=== PATIENT | male | born 1975 | race Caucasian/White ===

== ENCOUNTER 2017-11-05 12:15 | Emergency (ER) | payer BC ==
[~2017-11-05] VITALS: Ht 162.6 cm; Wt 103.2 kg
[~2017-11-05 12:15] MED LIST: ALBU6.7H INH; BENZ100 PO; PRED20 PO; TUSSSUS PO; ZITH250T PO
[2017-11-05 12:21] VITALS: BP 173/108; PULSE 93; RESP 20; TEMP 98.3; O2SAT 95
[2017-11-05] MEDS ORDERED: SODIUM CHLOR 0.9% 1000 ML INJ 1,000 ML IV SCH (12:59)
[2017-11-05] MEDS ORDERED: ONDANSETRON HCL 4 MG/2 ML VIAL IVP ONE (13:00)
[2017-11-05] MEDS ORDERED: KETOROLAC TROMETHAMINE 30 MG/ML (IVP) VIAL IV PUSH ONE (13:00)
[2017-11-05] MEDS ORDERED: SODIUM CHLORIDE 0.9% FLUSH 10 ML FLUSH IV FLUSH PRN (13:00)
--- NOTE | 2017-11-05 13:07 | PD ---
HPI Chief Complaint: Complaint Time Seen by Provider: 12:41 Travel History International Travel<30 days: No Contact w/Intl Traveler<30days: No Traveled to known affect area: No History of Present Illness HPI Patient is a 42-year-old male presents the emergency room with complaints of left-sided flank pain radiating to his groin. Patient reports that he had began feeling uncomfortable yesterday, reports that his symptoms are worse today. Patient denies any nausea vomiting with symptoms, denies any constipation or diarrhea. Patient denies any hematuria, denies history of kidney stones in the past. Patient does report some dysuria without urinary urgency or frequency. Patient denies any history of abdominal surgeries in the past. PFSH Past Medical History Medical History: Denies Significant Hx Autoimmune Disease: No Blood Disorders: No Cancer: No Diminished Hearing: No Glaucoma: No Psychiatric: No Past Surgical History AICD: No Genitourinary Surgery: No Pacemaker: No Social History Alcohol Use: Yes Tobacco Use: No Substance Use: No Allergies-Medications (Allergen,Severity, Reaction): Coded Allergies: No Known Allergies (Verified Adverse Reaction, Unknown, 11/05/17) Reported Meds & Prescriptions Reported Meds & Active Scripts Active Deltasone (Prednisone) 20 Mg Tab 20 Mg PO DIRECTED 3 TABS DAILY FOR 3 DAYS,THEN 2 TABS DAILY FOR 3 DAYS, THEN 1 TAB DAILY FOR 3 DAYS. Proventil Hfa (Albuterol Sulfate) 6.7 Gm Aero 2 Puff INH Q4HPRN * SHAKE WELL BEFORE USE * Tussionex (Chlorphenir/Hydrocodone Polistirex) Liqcr 5 Ml PO BIDPRN Reported Tessalon Perles (Benzonatate) 100 Mg Cap 100 Mg PO TID Zithromax Z-Henrique (Azithromycin) 250 Mg Tab 250 Mg PO DIRECTED 5 Days 500 MG (2 TABLETS) PO ON DAY 1, THEN 250 MG (1 TABLET) PO ON DAYS 2 TO 5. Review of Systems General / Constitutional: No: Fever Eyes: No: Visual changes HENT: No: Headaches Cardiovascular: No: Chest Pain or Discomfort Respiratory: No: Shortness of Breath Gastrointestinal: Positive: Abdominal Pain Genitourinary: Positive: Dysuria, Flank Pain, No: Urgency, Frequency, Hematuria Musculoskeletal: No: Pain Skin: No Rash Neurologic: No: Weakness Psychiatric: No: Depression Endocrine: No: Polydipsia Hematologic/Lymphatic: No: Easy Bruising Physical Exam Narrative GENERAL: mild distress SKIN: Focused skin assessment warm/dry. HEAD: Atraumatic. Normocephalic. EYES: Pupils equal and round. No scleral icterus. No injection or drainage. ENT: No nasal bleeding or discharge. Mucous membranes pink and moist. NECK: Trachea midline. No JVD. CARDIOVASCULAR: Regular rate and rhythm. No murmur appreciated. RESPIRATORY: No accessory muscle use. Clear to auscultation. Breath sounds equal bilaterally. GASTROINTESTINAL: Abdomen soft, non-tender, nondistended. Hepatic and splenic margins not palpable. Left sided flank pain MUSCULOSKELETAL: No obvious deformities. No clubbing. No cyanosis. No edema. NEUROLOGICAL: Awake and alert. No obvious cranial nerve deficits. Motor grossly within normal limits. Normal speech. PSYCHIATRIC: Appropriate mood and affect; insight and judgment normal. Data Data Last Documented VS Vital Signs Date Time Temp Pulse Resp B/P (MAP) Pulse Ox O2 Delivery O2 Flow Rate FiO2 11/05/17 12:21 98.3 93 20 173/108 (129) 95 Orders Orders Urinalysis - C+S If Indicated (11/05/17 12:23) Complete Blood Count With Diff (11/05/17 12:59) Comprehensive Metabolic Panel (11/05/17 12:59) Lipase (11/05/17 12:59) Prothrombin Time / Inr (Pt) (11/05/17 12:59) Act Partial Throm Time (Ptt) (11/05/17 12:59) Ct Abd/Pel W/O Iv Contrast (11/05/17 12:59) Iv Access Insert/Monitor (11/05/17 12:59) Ecg Monitoring (11/05/17 12:59) Oximetry (11/05/17 12:59) NPO (11/05/17 12:59) Ondansetron Inj (Zofran Inj) (11/05/17 13:00) Sodium Chlor 0.9% 1000 Ml Inj (Ns 1000 M (11/05/17 12:59) Sodium Chloride 0.9% Flush (Ns Flush) (11/05/17 13:00) Ketorolac Inj (Toradol Inj) (11/05/17 13:00) Strain Urine PRN (11/05/17 14:46) Labs Laboratory Tests Test 11/05/17 14:05 White Blood Count 6.9 TH/MM3 Red Blood Count 4.93 MIL/MM3 Hemoglobin 14.4 GM/DL Hematocrit 43.3 % Mean Corpuscular Volume 87.9 FL Mean Corpuscular Hemoglobin 29.2 PG Mean Corpuscular Hemoglobin Concent 33.2 % Red Cell Distribution Width 12.0 % Platelet Count 279 TH/MM3 Mean Platelet Volume 8.0 FL Neutrophils (%) (Auto) 63.7 % Lymphocytes (%) (Auto) 23.4 % Monocytes (%) (Auto) 11.5 % Eosinophils (%) (Auto) 0.8 % Basophils (%) (Auto) 0.6 % Neutrophils # (Auto) 4.4 TH/MM3 Lymphocytes # (Auto) 1.6 TH/MM3 Monocytes # (Auto) 0.8 TH/MM3 Eosinophils # (Auto) 0.1 TH/MM3 Basophils # (Auto) 0.0 TH/MM3 CBC Comment DIFF FINAL Differential Comment Prothrombin Time 10.7 SEC Prothromb Time International Ratio 1.1 RATIO Activated Partial Thromboplast Time 29.4 SEC Urine Collection Type CLEAN CATCH Urine Color YELLOW Urine Turbidity CLEAR Urine pH 5.0 Urine Specific [place] 1.010 Urine Protein NEG mg/dL Urine Glucose (UA) 250 mg/dL Urine Ketones NEG mg/dL Urine Occult Blood SMALL Urine Nitrite NEG Urine Bilirubin NEG Urine Urobilinogen 0.2 MG/DL Urine Leukocyte Esterase NEG Urine RBC 4-9 /hpf Urine Squamous Epithelial Cells 0-5 /hpf Microscopic Urinalysis Comment CULT NOT INDICATED Urine Collection Time 14:05 Blood Urea Nitrogen 14 MG/DL Creatinine 1.10 MG/DL Random Glucose 106 MG/DL Total Protein 8.0 GM/DL Albumin 3.6 GM/DL Calcium Level 8.9 MG/DL Alkaline Phosphatase 88 U/L Aspartate Amino Transf (AST/SGOT) 26 U/L Alanine Aminotransferase (ALT/SGPT) 49 U/L Total Bilirubin 0.4 MG/DL Sodium Level 136 MEQ/L Potassium Level 3.6 MEQ/L Chloride Level 104 MEQ/L Carbon Dioxide Level 26.9 MEQ/L Anion Gap 5 MEQ/L Estimat Glomerular Filtration Rate 73 ML/MIN Lipase 75 U/L MDM Medical Decision Making Medical Screen Exam Complete: Yes Emergency Medical Condition: Yes Medical Record Reviewed: Yes Interpretation(s) Vital Signs Date Time Temp Pulse Resp B/P (MAP) Pulse Ox O2 Delivery O2 Flow Rate FiO2 11/05/17 12:21 98.3 93 20 173/108 (129) 95 Differential Diagnosis UTI, pyelonephritis, nephrolithiasis. muscle strain, electrolyte abnormality Narrative Course 42 year old male who presents to the ER with c/o of right sided flank pain which began yesterday. During the course of the patients emergency department visit, the patients history, examination, and differential diagnosis were reviewed with the patient. The patient was placed on a patient resource coordinator with oximetry and frequent blood pressure monitoring. The patient had an IV access obtained and blood work sent for analysis. The patient was initially provided IVF, IV toradol The patients laboratory studies were reviewed and remarkable for Last Impressions Laboratory Tests Test 11/05/17 14:05 White Blood Count 6.9 TH/MM3 (4.0-11.0) Red Blood Count 4.93 MIL/MM3 (4.50-5.90) Hemoglobin 14.4 GM/DL (13.0-17.0) Hematocrit 43.3 % (39.0-51.0) Mean Corpuscular Volume 87.9 FL (80.0-100.0) Mean Corpuscular Hemoglobin 29.2 PG (27.0-34.0) Mean Corpuscular Hemoglobin Concent 33.2 % (32.0-36.0) Red Cell Distribution Width 12.0 % (11.6-17.2) Platelet Count 279 TH/MM3 (150-450) Mean Platelet Volume 8.0 FL (7.0-11.0) Neutrophils (%) (Auto) 63.7 % (16.0-70.0) Lymphocytes (%) (Auto) 23.4 % (9.0-44.0) Monocytes (%) (Auto) 11.5 % (0.0-8.0) Eosinophils (%) (Auto) 0.8 % (0.0-4.0) Basophils (%) (Auto) 0.6 % (0.0-2.0) Neutrophils # (Auto) 4.4 TH/MM3 (1.8-7.7) Lymphocytes # (Auto) 1.6 TH/MM3 (1.0-4.8) Monocytes # (Auto) 0.8 TH/MM3 (0-0.9) Eosinophils # (Auto) 0.1 TH/MM3 (0-0.4) Basophils # (Auto) 0.0 TH/MM3 (0-0.2) CBC Comment DIFF FINAL Differential Comment Prothrombin Time 10.7 SEC (9.8-11.6) Prothromb Time International Ratio 1.1 RATIO Activated Partial Thromboplast Time 29.4 SEC (24.3-30.1) Urine Collection Type CLEAN CATCH Urine Color YELLOW (YELLW/STRAW) Urine Turbidity CLEAR (CLEAR) Urine pH 5.0 (5.0-8.5) Urine Specific [place] 1.010 (1.002-1.035) Urine Protein NEG mg/dL (NEG-TRACE) Urine Glucose (UA) 250 mg/dL (NEG) Urine Ketones NEG mg/dL (NEG) Urine Occult Blood SMALL (NEG) Urine Nitrite NEG (NEG) Urine Bilirubin NEG (NEG) Urine Urobilinogen 0.2 MG/DL (LESS THAN Urine Leukocyte Esterase NEG (NEG) Urine RBC 4-9 /hpf (0-3) Urine Squamous Epithelial Cells 0-5 /hpf (0-5) Microscopic Urinalysis Comment CULT NOT INDICATED Urine Collection Time 14:05 Blood Urea Nitrogen 14 MG/DL (7-18) Creatinine 1.10 MG/DL (0.60-1.30) Random Glucose 106 MG/DL (74-106) Total Protein 8.0 GM/DL (6.4-8.2) Albumin 3.6 GM/DL (3.4-5.0) Calcium Level 8.9 MG/DL (8.5-10.1) Alkaline Phosphatase 88 U/L (45-117) Aspartate Amino Transf (AST/SGOT) 26 U/L (15-37) Alanine Aminotransferase (ALT/SGPT) 49 U/L (12-78) Total Bilirubin 0.4 MG/DL (0.2-1.0) Sodium Level 136 MEQ/L (136-145) Potassium Level 3.6 MEQ/L (3.5-5.1) Chloride Level 104 MEQ/L (98-107) Carbon Dioxide Level 26.9 MEQ/L (21.0-32.0) Anion Gap 5 MEQ/L (5-15) Estimat Glomerular Filtration Rate 73 ML/MIN (>89) Lipase 75 U/L (73-393) Abdomen/Pelvis CT 11/05/17 1259 Signed Impressions: Service Date/Time: Sunday, November 05, 2017 13:31 - CONCLUSION: 4 mm identified within the distal left ureter at the level of the UVJ. Moderate left-sided hydronephrosis, perinephric stranding and dilation of the left ureter. Fatty infiltration of the liver.. Gela Plunkett MD Labs reviewed, BUN creatinine is 14/1.10 UA: Positive for small blood, negative leuk esterase, negative ketones, negative nitrites CT of the abdomen and pelvis is positive for 4 mm stone in the left UVJ with hydronephrosis and perinephric stranding. I reviewed all labs and all studies as well as all incidental findings with patient in detail. Patient reports that he is feeling much better at this time. Discussed need to strain his urine, he will follow-up with urology as outpatient. Signs and symptoms of when to return to the emergency room was reviewed patient in detail. Patient understands that he should not drive or operate any heavy machinery while taking narcotic pain medications. Diagnosis Primary Impression: Kidney stone on left side Additional Impression: Hydronephrosis Referrals: Clem Krishna DO Patient Instructions: General Instructions Departure Forms: Tests/Procedures, Work Release Enter return to work date: Nov 09, 2017 Additional Instructions: Please provide patient with a copy of their lab work and studies at discharge* * Please follow up with your primary care doctor in 2-3 days Return to the ER if symptoms worsen or progress Return to the ER as needed Please follow-up with urologist Drink plenty of water Strain your urine, bring the passed kidney stone to urologist for further workup Med/Other Pt SpecificInfo: Prescription(s) given Scripts Tamsulosin (Flomax) 0.4 Mg Cap 0.4 MG PO HS for Manage Prostate Problems, #10 CAP 0 Refills Prov: Prisca Brown DO 11/05/17 Ibuprofen (Ibuprofen) 600 Mg Tab 600 MG PO Q6H Y for Pain/Inflammation, #40 TAB 0 Refills Prov: Prisac Brown DO 11/05/17 Oxycodone-Acetaminophen (Percocet) 5-325 mg Tab 1 TAB PO Q6H Y for PAIN, #12 TAB 0 Refills Prov: Prisca Brown DO 11/05/17 Disposition: 01 DISCHARGE HOME Condition: Stable Prisca Brown DO Nov 05, 2017 13:06
[2017-11-05 13:15] VITALS: O2SAT 97
--- NOTE | 2017-11-05 13:46 | RADRPT ---
EXAM DATE/TIME: 11/05/2017 13:31 [facility] COMPARISON: No previous studies available for comparison. INDICATIONS : Left flank pain. ORAL CONTRAST: No oral contrast ingested. RADIATION DOSE: 21.10 CTDIvol (mGy) MEDICAL HISTORY : None SURGICAL HISTORY : Hernia repair. ENCOUNTER: Initial ACUITY: 3 days PAIN SCALE: 6/10 LOCATION: Left flank TECHNIQUE: Volumetric scanning of the abdomen and pelvis was performed. Using automated exposure control and ad justment of the mA and/or kV according to patient size, radiation dose was kept as low as reasonably achievable to obtain optimal diagnostic quality images. DICOM format image data is available electro nically for review and comparison. FINDINGS: LOWER LUNGS: The visualized lower lungs are clear. LIVER: Homogeneous low density without lesion. There is no dilation of the biliary tree. No calcified gall stones. SPLEEN: Normal size without lesion. PANCREAS: Within normal limits. KIDNEYS: There is moderate left-sided hydronephrosis and perinephric stranding. There is dilation of the left ureter UVJ where there is a 4 mm stone. ADRENAL GLANDS: Within normal limits. VASCULAR: There is no aortic aneurysm. BOWEL/MESENTERY: The stomach, small bowel, and colon demonstrate no acute abnormality. There is no free intraperitone al air or fluid. ABDOMINAL WALL: Within normal limits. RETROPERITONEUM: There is no lymphadenopathy. BLADDER: No wall thickening or mass. REPRODUCTIVE: Within normal limits. INGUINAL: There is no lymphadenopathy or hernia. MUSCULOSKELETAL: Within normal limits for patient age. CONCLUSION: 4 mm identified within the distal left ureter at the level of the UVJ. Moderate left-sided hydronephr osis, perinephric stranding and dilation of the left ureter. Fatty infiltration of the liver.. Gela Plunkett MD on November 05, 2017 at 13:41 Board Certified Radiologist. This report was verified electronically.
[2017-11-05 14:13] LABS: BILIRUBIN, URINE NEG (NEG); BLOOD, URINE SMALL (NEG); GLUCOSE,URINE 250 mg/dL (NEG); KETONE, URINE NEG (NEG); NITRITE,URINE NEG (NEG); URINE COLOR YELLOW (YELLW/STRAW); URINE LEUKOCYTE ESTERASE NEG (NEG)
[2017-11-05 14:15] LABS: AUTOMATED NEUTROPHIL # 4.4 TH/MM3 (1.8-7.7); BASOPHIL % 0.6 % (0.0-2.0); EOSINOPHIL # 0.1 TH/MM3 (0-0.4); EOSINOPHIL % 0.8 % (0.0-4.0); HEMATOCRIT 43.3 % (39.0-51.0); HEMOGLOBIN 14.4 GM/DL (13.0-17.0); LYMPH % 23.4 % (9.0-44.0); LYMPHOCYTE # 1.6 TH/MM3 (1.0-4.8); MEAN CELL VOLUME 87.9 FL (80.0-100.0); MEAN CORPUSCULAR HEMOGLOBIN 29.2 PG (27.0-34.0); MEAN CORPUSCULAR HGB CONC 33.2 % (32.0-36.0); MONO % 11.5 % (0.0-8.0); MONOCYTE # 0.8 TH/MM3 (0-0.9); NEUT % 63.7 % (16.0-70.0); PLATELET COUNT 279 TH/MM3 (150-450); RED BLOOD COUNT 4.93 MIL/MM3 (4.50-5.90); WHITE BLOOD COUNT 6.9 TH/MM3 (4.0-11.0)
[2017-11-05 14:21] LABS: CHLORIDE 104 MEQ/L (98-107); SODIUM (NA) 136 MEQ/L (136-145)
[2017-11-05 14:25] LABS: ALBUMIN 3.6 GM/DL (3.4-5.0); BICARBONATE 26.9 MEQ/L (21.0-32.0); BLOOD UREA NITROGEN 14 MG/DL (7-18); CALCIUM 8.9 MG/DL (8.5-10.1); GLUCOSE,RANDOM 106 MG/DL (74-106)
[2017-11-05 14:26] LABS: INTERNATIONAL NORMALIZED RATIO 1.1 RATIO; PROTHROMBIN TIME - PATIENT 10.7 SEC (9.8-11.6)
[2017-11-05 14:28] LABS: ALT (GPT) 49 U/L (12-78); AST (GOT) 26 U/L (15-37); GLOMERULAR FILTRATION RATE 73 ML/MIN (>89)
[2017-11-05 14:30] LABS: TOTAL BILIRUBIN ADULT 0.4 MG/DL (0.2-1.0)
[2017-11-05 14:31] LABS: ALKALINE PHOSPHATASE 88 U/L (45-117)
[2017-11-05 14:40] LABS: SQUAMOUS EPITHELIAL CELL URINE 0-5 /hpf (0-5)
[2017-11-05] MEDS ORDERED: IBUP-232 PO (14:52)
[2017-11-05] MEDS ORDERED: PERC5TAB12 PO (14:52)
[2017-11-05] MEDS ORDERED: TAMS5CAP PO (14:52)
== END 2017-11-05 15:55 | disposition home or self-care (01) ==
LOC: PHED 12:15
DX: N13.2 Hydronephrosis with renal and ureteral calculous obstruction (principal); K76.0 Fatty (change of) liver, not elsewhere classified; R30.0 Dysuria
CPT/HCPCS: 74176; 80053; 81001; 83690; 85025; 85610; 85730; 96374; 99284; J1885; J7030